=== PATIENT | female | born 1950 | race Two or more races ===

== ENCOUNTER → 2023-08-19 | Outpatient (CLI) | payer BC ==
[2023-08-19 10:46] LABS: Basophils # (auto) 0 10 ^3/uL (0-0.2); Basophils % (auto) 0.7 % (0.0-2.0); Eosinophils # (auto) 0.2 10 ^3/uL (0-0.8); Eosinophils % (auto) 4.7 % (0.0-7.0); Hematocrit 40.6 % (36.0-46.0); Hemoglobin 13.5 g/dL (12.2-16.2); Lymphocytes # (auto) 1.1 10 ^3/uL (0.4-5.4); Lymphocytes % (auto) 31.2 % (10.0-50.0); Mean Corpuscular Hgb Conc. 33.4 g/dL (32.0-36.0); Mean Corpuscular Volume 89.7 fL (80.0-100.0); Monocytes # (auto) 0.4 10 ^3/uL (0-1.3); Monocytes % (auto) 12.5 % (0.0-12.0); Neutrophils # (auto) 1.7 10 ^3/uL (1.6-8.6); Neutrophils % (auto) 50.9 % (37.0-80.0); Nucleated Red Blood Cells % 0.1 %; Red Blood Cells 4.52 10^6/uL (4.0-5.20); Red Cell Distribution Width 13.7 % (11.8-14.3); White Blood Cell 3.4 10^3/uL (4.4-10.8)
[2023-08-19 11:20] LABS: Alanine Aminotransferase 19 U/L (7-40); Albumin 4.2 g/dL (3.2-4.8); Alkaline Phosphatase 130 U/L (46-116); Anion Gap 7 (5-15); Aspartate Aminotransferase 22 U/L (13-40); BUN/Creatinine Ratio 11.9 (10.0-20.0); Blood Urea Nitrogen 10 mg/dL (9-23); Calcium 9.4 mg/dL (8.5-10.1); Carbon Dioxide 26 mmol/L (20-30); Chloride 107 mmol/L (98-107); Glucose 82 mg/dL (74-106); LDL Cholesterol 106 mg/dL (< 100); Potassium 4.2 mmol/L (3.5-5.1); Sodium 140 mmol/L (136-145); Triglycerides 104 mg/dL (< 150)
[2023-08-19 11:21] LABS: Bilirubin, Total 0.7 mg/dL (0.2-1.0); Cholesterol 168 mg/dL (< 200); HDL Cholesterol 55 mg/dL (40-59); Total Protein 7.2 g/dL (5.7-8.2)
[2023-08-19 11:35] LABS: Urine Bacteria FEW /hpf (None Seen); Urine Blood Negative /uL (Negative); Urine Clarity Clear (Clear); Urine Color Colorless (Yellow); Urine Protein, UAD Negative (Negative); Urine Specific Gravity 1.012 (1.001-1.035); Urine Urobilinogen Normal (Negative); Urine WBC 6 /hpf (0 - 5); Urine pH 6.5 (5.0-8.0)
[2023-08-20 07:06] LABS: HSV 1 IgG Antibody <0.91 index (0.00-0.90); HSV 2 IgG Antibody 6.72 index (0.00-0.90)
== END | disposition home or self-care (01) ==
LOC: LAB 10:14
PROVIDERS: ATTEND Internal Medicine
DX: Z00.00 Encounter for general adult medical examination without abnormal findings (principal)
CPT/HCPCS: 36415; 80053; 80061; 81001; 84439; 84443; 85025; 86695; 86696

== ENCOUNTER → 2024-04-11 | Outpatient (CLI) | payer BC ==
[2024-04-11 15:14] LABS: Basophils # (auto) 0 10 ^3/uL (0-0.2); Basophils % (auto) 0.5 % (0.0-2.0); Eosinophils # (auto) 0.1 10 ^3/uL (0-0.8); Eosinophils % (auto) 3.1 % (0.0-7.0); Hematocrit 41.2 % (36.0-46.0); Hemoglobin 13.9 g/dL (12.2-16.2); Lymphocytes # (auto) 1.5 10 ^3/uL (0.4-5.4); Lymphocytes % (auto) 36.9 % (10.0-50.0); Mean Corpuscular Hemoglobin 30.2 pg (28.0-32.0); Mean Corpuscular Hgb Conc. 33.6 g/dL (32.0-36.0); Mean Corpuscular Volume 89.8 fL (80.0-100.0); Monocytes # (auto) 0.4 10 ^3/uL (0-1.3); Monocytes % (auto) 10.1 % (0.0-12.0); Neutrophils % (auto) 49.4 % (37.0-80.0); Nucleated Red Blood Cells % 0.1 %; Platelet Count (auto) 242 10^3/uL (140-450); Red Blood Cells 4.59 10^6/uL (4.0-5.20); Red Cell Distribution Width 14.1 % (11.8-14.3); White Blood Cell 4.1 10^3/uL (4.4-10.8)
[2024-04-11 15:28] LABS: Wright Stain Ready for Review
[2024-04-11 15:37] LABS: Alanine Aminotransferase 17 U/L (7-40); Albumin 4.1 g/dL (3.2-4.8); Alkaline Phosphatase 132 U/L (46-116); Anion Gap 3 (5-15); Aspartate Aminotransferase 21 U/L (13-40); BUN/Creatinine Ratio 18.3 (10.0-20.0); Bilirubin, Total 0.9 mg/dL (0.2-1.0); Blood Urea Nitrogen 17 mg/dL (9-23); Calcium 9.5 mg/dL (8.7-10.4); Carbon Dioxide 29 mmol/L (20-30); Chloride 109 mmol/L (98-107); Glucose 78 mg/dL (74-106); Potassium 4.2 mmol/L (3.5-5.1); Sodium 141 mmol/L (136-145); Total Protein 7.1 g/dL (5.7-8.2)
[2024-04-12 06:06] LABS: Hepatitis B Core Total Antibod Negative (Negative)
[2024-04-12 13:07] LABS: Anti-Nuclear Antibody Direct Positive (Negative)
[2024-04-17 12:06] LABS: Cytoplasmic (C-ANCA) <1:20 titer (Neg:<1:20); Perinuclear (P-ANCA) <1:20 titer (Neg:<1:20)
== END | disposition home or self-care (01) ==
LOC: LAB 14:07
PROVIDERS: ATTEND Internal Medicine
DX: D72.819 Decreased white blood cell count, unspecified (principal)
CPT/HCPCS: 36415; 80053; 82607; 83615; 85025; 86038; 86256; 86703; 86803; 87340

== ENCOUNTER → 2024-06-05 | Outpatient (CLI) | payer BC | END | disposition home or self-care (01) | LOC: LAB 08:46 | PROVIDERS: ATTEND Urology | DX: N28.89 Other specified disorders of kidney and ureter (principal) | CPT/HCPCS: 36415; 82565; 84520 ==

== ENCOUNTER → 2024-09-14 | Outpatient (CLI) | payer BC ==
[2024-09-14 08:19] LABS: Basophils # (auto) 0 10 ^3/uL (0-0.2); Basophils % (auto) 0.5 % (0.0-2.0); Eosinophils # (auto) 0.1 10 ^3/uL (0-0.8); Eosinophils % (auto) 4.1 % (0.0-7.0); Hematocrit 42.7 % (36.0-46.0); Hemoglobin 14.3 g/dL (12.2-16.2); Lymphocytes % (auto) 33.9 % (10.0-50.0); Mean Corpuscular Hemoglobin 30.3 pg (28.0-32.0); Mean Corpuscular Hgb Conc. 33.5 g/dL (32.0-36.0); Mean Corpuscular Volume 90.5 fL (80.0-100.0); Monocytes # (auto) 0.5 10 ^3/uL (0-1.3); Monocytes % (auto) 17.5 % (0.0-12.0); Neutrophils # (auto) 1.3 10 ^3/uL (1.6-8.6); Nucleated Red Blood Cells % 0.2 %; Platelet Count (auto) 243 10^3/uL (140-450); Red Blood Cells 4.72 10^6/uL (4.0-5.20); Red Cell Distribution Width 13.8 % (11.8-14.3)
[2024-09-14 08:30] LABS: Urine Bacteria FEW /hpf (None Seen); Urine Blood Negative /uL (Negative); Urine Clarity Turbid (Clear); Urine Color Light-Yellow (Yellow); Urine Protein, UAD Negative (Negative); Urine Specific Gravity 1.017 (1.001-1.035); Urine Squamous Epithelial Cell FEW /hpf (<5); Urine Urobilinogen Normal (Negative); Urine WBC 37 /hpf (0 - 5); Urine pH 5.5 (5.0-9.0)
[2024-09-14 08:39] LABS: INR 0.95 (0.9-1.15); Prothrombin Time 10.1 sec (9.3-11.8)
[2024-09-14 08:47] LABS: Alanine Aminotransferase 15 U/L (7-40); Albumin 4.4 g/dL (3.2-4.8); Anion Gap 4 (5-15); Aspartate Aminotransferase 21 U/L (13-40); BUN/Creatinine Ratio 13.7 (10.0-20.0); Blood Urea Nitrogen 14 mg/dL (9-23); Calcium 9.7 mg/dL (8.7-10.4); Carbon Dioxide 26 mmol/L (20-31); Glucose 89 mg/dL (74-106); Potassium 4.4 mmol/L (3.5-5.1); Sodium 139 mmol/L (136-145); Triglycerides 91 mg/dL (< 150)
[2024-09-14 08:48] LABS: Alkaline Phosphatase 141 U/L (46-116); Bilirubin, Total 0.5 mg/dL (0.2-1.0); Chloride 109 mmol/L (98-107); Cholesterol 157 mg/dL (< 200); HDL Cholesterol 50 mg/dL (40-59); LDL Cholesterol 101 mg/dL (< 100); Total Protein 7.4 g/dL (5.7-8.2)
[2024-09-14 08:57] LABS: Erythrocyte Sedimentation Rate 8 mm/hr (0-20)
[2024-09-15 08:06] LABS: Complement C3 164 mg/dL (82-167); Rheumatoid Arthritis Factor 10.9 IU/mL (<14.0)
[2024-09-15 13:06] LABS: Anti-Nuclear Antibody Direct Negative (Negative); Anti-dsDNA Antibody <1 IU/mL (0-9); Antiscleroderma-70 Antibody <0.2 AI (0.0-0.9); RNP Antibody 0.8 AI (0.0-0.9); Sjogren's Anti-SS-A Antibody <0.2 AI (0.0-0.9); Sjogren's Anti-SS-B Antibody <0.2 AI (0.0-0.9); Smith Antibody <0.2 AI (0.0-0.9)
[2024-09-15 21:05] LABS: Actin (Smooth Muscle) Antibody 6 Units (0-19); Mitochondrial (M2) Antibody <20.0 Units (0.0-20.0)
[2024-09-16 09:06] LABS: Thyroid Peroxidase (TPO) Ab 87 IU/mL (0-34)
[2024-09-17 11:06] LABS: Antiparietal Cell Antibody 39.5 Units (0.0-20.0)
== END | disposition home or self-care (01) ==
LOC: LAB 07:51
PROVIDERS: ATTEND Internal Medicine
DX: K76.0 Fatty (change of) liver, not elsewhere classified (principal); E03.9 Hypothyroidism, unspecified; M25.50 Pain in unspecified joint; R76.8 Other specified abnormal immunological findings in serum
CPT/HCPCS: 36415; 80053; 80061; 81001; 84439; 84443; 85025; 85610; 85652; 86160; 86225; 86235; 86376; 86431

== ENCOUNTER → 2025-01-10 | Outpatient (CLI) | payer BC ==
[2025-01-10 11:58] LABS: Basophils # (auto) 0 10 ^3/uL (0-0.2); Eosinophils # (auto) 0.2 10 ^3/uL (0-0.8); Eosinophils % (auto) 5.8 % (0.0-7.0); Hemoglobin 13.8 g/dL (12.2-16.2); Lymphocytes # (auto) 1.1 10 ^3/uL (0.4-5.4); Mean Corpuscular Hemoglobin 30.1 pg (28.0-32.0); Mean Corpuscular Hgb Conc. 33.6 g/dL (32.0-36.0); Mean Corpuscular Volume 89.5 fL (80.0-100.0); Monocytes # (auto) 0.4 10 ^3/uL (0-1.3); Monocytes % (auto) 13.2 % (0.0-12.0); Neutrophils # (auto) 1.5 10 ^3/uL (1.6-8.6); Nucleated Red Blood Cells % 0.1 %; Platelet Count (auto) 223 10^3/uL (140-450); Red Blood Cells 4.58 10^6/uL (4.0-5.20); White Blood Cell 3.2 10^3/uL (4.4-10.8)
[2025-01-10 12:12] LABS: Alanine Aminotransferase 19 U/L (7-40); Albumin 4.5 g/dL (3.2-4.8); Anion Gap 7 (5-15); Blood Urea Nitrogen 16 mg/dL (9-23); Calcium 9.9 mg/dL (8.7-10.4); Carbon Dioxide 26 mmol/L (20-31); Chloride 105 mmol/L (98-107); Glucose 86 mg/dL (74-106); Potassium 4.4 mmol/L (3.5-5.1); Sodium 138 mmol/L (136-145); Total Protein 7.5 g/dL (5.7-8.2)
[2025-01-10 12:13] LABS: Aspartate Aminotransferase 19 U/L (13-40); BUN/Creatinine Ratio 18.8 (10.0-20.0); Bilirubin, Total 0.6 mg/dL (0.2-1.0)
[2025-01-10 12:14] LABS: Alkaline Phosphatase 178 U/L (46-116)
[2025-01-10 12:19] LABS: Erythrocyte Sedimentation Rate 11 mm/hr (0-20)
== END | disposition home or self-care (01) ==
LOC: LAB 11:06
PROVIDERS: ATTEND Internal Medicine Rheumatology
DX: K50.90 Crohn's disease, unspecified, without complications (principal); R53.83 Other fatigue; M06.9 Rheumatoid arthritis, unspecified
CPT/HCPCS: 36415; 80053; 85025; 85652; 86141; 86256; 86671; 86812

== ENCOUNTER 2025-02-08 10:21 | Outpatient (CLI) | payer BC ==
[2025-02-08 11:00] LABS: Basophils # (auto) 0 10 ^3/uL (0-0.2); Basophils % (auto) 0.9 % (0.0-2.0); Eosinophils # (auto) 0.1 10 ^3/uL (0-0.8); Eosinophils % (auto) 4.5 % (0.0-7.0); Hematocrit 41.9 % (36.0-46.0); Hemoglobin 14.3 g/dL (12.2-16.2); Lymphocytes % (auto) 33.7 % (10.0-50.0); Mean Corpuscular Hemoglobin 30.3 pg (28.0-32.0); Mean Corpuscular Hgb Conc. 34.1 g/dL (32.0-36.0); Mean Corpuscular Volume 88.7 fL (80.0-100.0); Monocytes # (auto) 0.4 10 ^3/uL (0-1.3); Monocytes % (auto) 14.4 % (0.0-12.0); Neutrophils # (auto) 1.3 10 ^3/uL (1.6-8.6); Neutrophils % (auto) 46.5 % (37.0-80.0); Nucleated Red Blood Cells % 0.1 %; Platelet Count (auto) 231 10^3/uL (140-450); Red Blood Cells 4.72 10^6/uL (4.0-5.20); Red Cell Distribution Width 13.6 % (11.8-14.3); White Blood Cell 2.9 10^3/uL (4.4-10.8)
[2025-02-08 11:28] LABS: Thyroid Stimulating Hormone 1.78 uIU/mL (0.55-4.78)
[2025-02-11] MEDS ORDERED: MULT-1018 OR (14:50)
[2025-02-11] MEDS ORDERED: MELO15TA29 PO (14:50)
[2025-02-11] MEDS ORDERED: MAGN400T40 OR (14:50)
[2025-02-11] MEDS ORDERED: HYDR-4491 OR (14:50)
[2025-02-11] MEDS ORDERED: LEVO75TA6 PO (14:50)
[2025-02-11] MEDS ORDERED: LEVO25TA6 PO (14:50)
[2025-02-11] MEDS ORDERED: CALC1TAB92 PO (14:50)
== END 2025-02-08 17:00 | disposition home or self-care (01) ==
LOC: LAB 10:21
PROVIDERS: ATTEND Internal Medicine
DX: E03.9 Hypothyroidism, unspecified (principal); D70.0 Congenital agranulocytosis
CPT/HCPCS: 36415; 83615; 84439; 84443; 85025

== ENCOUNTER 2025-02-15 08:08 | Day surgery (SDC) | payer BC ==
[2025-02-11 15:26] LABS: Basophils # (auto) 0 10 ^3/uL (0-0.2); Basophils % (auto) 0.9 % (0.0-2.0); Eosinophils # (auto) 0.1 10 ^3/uL (0-0.8); Eosinophils % (auto) 3.8 % (0.0-7.0); Hematocrit 41.8 % (36.0-46.0); Lymphocytes # (auto) 1.4 10 ^3/uL (0.4-5.4); Lymphocytes % (auto) 39.4 % (10.0-50.0); Mean Corpuscular Hemoglobin 30.1 pg (28.0-32.0); Mean Corpuscular Hgb Conc. 33.6 g/dL (32.0-36.0); Mean Corpuscular Volume 89.5 fL (80.0-100.0); Monocytes # (auto) 0.3 10 ^3/uL (0-1.3); Monocytes % (auto) 9.6 % (0.0-12.0); Neutrophils # (auto) 1.6 10 ^3/uL (1.6-8.6); Neutrophils % (auto) 46.3 % (37.0-80.0); Nucleated Red Blood Cells % 0.1 %; Platelet Count (auto) 224 10^3/uL (140-450); Red Blood Cells 4.66 10^6/uL (4.0-5.20); Red Cell Distribution Width 13.5 % (11.8-14.3); White Blood Cell 3.5 10^3/uL (4.4-10.8)
[2025-02-11 15:30] LABS: INR 0.98 (0.9-1.15); Prothrombin Time 10.4 sec (9.3-11.8)
[2025-02-11 15:40] LABS: Alanine Aminotransferase 19 U/L (7-40); Albumin 4.4 g/dL (3.2-4.8); Anion Gap 8 (5-15); Aspartate Aminotransferase 22 U/L (<34); BUN/Creatinine Ratio 19.4 (10.0-20.0); Blood Urea Nitrogen 19 mg/dL (9-23); Calcium 10.1 mg/dL (8.7-10.4); Carbon Dioxide 28 mmol/L (20-31); Glucose 81 mg/dL (74-106); Potassium 4.3 mmol/L (3.5-5.1); Sodium 144 mmol/L (136-145); Total Protein 7.2 g/dL (5.7-8.2)
[2025-02-11 15:41] LABS: Bilirubin, Total 0.7 mg/dL (0.2-1.0)
[2025-02-11 15:45] LABS: Alkaline Phosphatase 131 U/L (46-116); Chloride 108 mmol/L (98-107)
[~2025-02-15] VITALS: Ht 170.2 cm; Wt 100.7 kg
[~2025-02-15 08:08] MED LIST: CALC1TAB92 PO; HYDR-4491 OR; LEVO25TA6 PO; LEVO75TA6 PO; MAGN400T40 OR; MELO15TA29 PO; MULT-1018 OR
[2025-02-15] MEDS ORDERED: SODIUM CHLORIDE LOCK 10 ML ONE (08:21)
[2025-02-15] MEDS ORDERED: NALOXONE HCL 0.4 MG/ML VIAL ONE (08:21)
[2025-02-15] MEDS ORDERED: FLUMAZENIL 0.1 MG/ML INJ 10ML MDV IV ONE (08:21)
[2025-02-15 09:19] VITALS: PULSE 78; RESP 16; O2SAT 99
[2025-02-15] MEDS: fentaNYL CITRATE 100 MCG/2 ML VL ONE (09:23)
[2025-02-15] MEDS: diphenhdrAMINE HCL 50 MG/1 ML VL ONE (09:23)
[2025-02-15] MEDS: MIDAZOLAM HCL 5 MG/ML-1ML VIAL ONE (09:23)
[2025-02-15 09:40] VITALS: PULSE 126; RESP 12; TEMP 97.4; O2SAT 100
--- NOTE | 2025-02-15 09:41 | DVHOP2 ---
Operative Report DATE OF OPERATION: 02/15/25 PROCEDURE: Diagnostic Colonoscopy. PREOPERATIVE INDICATION: The patient is a 74 -year-old female undergoing colonoscopy for surveillance with personal history of colon polyps and colon cancer screening POSTOPERATIVE DIAGNOSES: 1. Trace internal hemorrhoids otherwise essentially completely normal colonoscopy examination up to the cecum and terminal ileum PROCEDURE PERFORMED BY: Shantell Wolf M.D. SCOPE: Olympus videocolonoscope. ASA CLASS: 2 PREOPERATIVE MEDICATIONS: Versed 1 mg, Fentanyl 25 mcg, Benadryl 50 mg PROCEDURE IN DETAIL: After obtaining an informed consent, the patient was placed on left lateral decubitus position. She was then sedated with the above medications. A rectal examination was performed that was normal. The colonoscope was then passed through the anus into the rectosigmoid and through the descending, transverse, and ascending colon up to the cecum with visualization of the appendiceal orifice, base of the cecum and the ileocecal valve. The colonoscope was then withdrawn. Distal 5-10 cm of the terminal ileum were normal No masses or colitis was noted. There was no clear-cut diverticular disease There was mild redundancy of the sigmoid colon and on retroflexion trace internal hemorrhoids The patient tolerated the procedure well without difficulty. WITHDRAWAL TIME: 6 minutes QUALITY OF THE PREP: [place] Bowel Prep score: 9. COMPLICATIONS : None SPECIMENS: Not DISPOSITION: Stable D/C to home PLAN: 1. Repeat colonoscopy in 5-7 years if the patient has prior history of polyps 2. Resume GI soft diet advance as tolerated 3. Outpatient follow up with me in 4-6 weeks to review results and discuss further management SHANTELL WOLF MD Feb 15, 2025 09:41
[2025-02-15 10:21] VITALS: BP 145/82; PULSE 59; RESP 14; O2SAT 97
== END 2025-02-15 10:20 | disposition home or self-care (01) ==
LOC: GI 08:08
PROVIDERS: ATTEND Internal Medicine Gastroenterology
DX: Z12.11 Encounter for screening for malignant neoplasm of colon (principal); K64.8 Other hemorrhoids; E03.9 Hypothyroidism, unspecified; Z88.0 Allergy status to penicillin; J45.909 Unspecified asthma, uncomplicated; Z86.0100 Personal history of colon polyps, unspecified; Z88.2 Allergy status to sulfonamides; Z79.890 Hormone replacement therapy; Z98.84 Bariatric surgery status; Z98.890 Other specified postprocedural states; M19.90 Unspecified osteoarthritis, unspecified site
CPT/HCPCS: 36415; 45378; 80053; 85025; 85610; 85730; J1200; J2250; J3010; J7030

== ENCOUNTER 2025-04-18 10:32 | Outpatient (CLI) | payer BC ==
[2025-04-18 11:13] LABS: Hematocrit 41.6 % (36.0-46.0); Hemoglobin 13.9 g/dL (12.2-16.2); Mean Corpuscular Hemoglobin 30.1 pg (28.0-32.0); Mean Corpuscular Volume 90.0 fL (80.0-100.0); Nucleated Red Blood Cells % 0.1 %
[2025-04-18 11:45] LABS: Alanine Aminotransferase 21 U/L (7-40); Albumin 4.2 g/dL (3.2-4.8); Alkaline Phosphatase 109 U/L (46-116); Anion Gap 9 (5-15); BUN/Creatinine Ratio 9.2 (10.0-20.0); Bilirubin, Total 0.6 mg/dL (0.2-1.0); Blood Urea Nitrogen 10 mg/dL (9-23); Calcium 9.3 mg/dL (8.7-10.4); Carbon Dioxide 27 mmol/L (20-31); Glucose 84 mg/dL (74-106); Potassium 4.9 mmol/L (3.5-5.1); Sodium 145 mmol/L (136-145); Total Protein 6.7 g/dL (5.7-8.2)
[2025-04-18 11:46] LABS: Chloride 109 mmol/L (98-107)
== END 2025-04-18 17:00 | disposition home or self-care (01) ==
LOC: LAB 10:32
PROVIDERS: ATTEND Internal Medicine Rheumatology
DX: M05.79 Rheumatoid arthritis with rheumatoid factor of multiple sites without organ or systems involvement (principal)
CPT/HCPCS: 36415; 80053; 84443; 85025